=== PATIENT | male | born 1945 | race Caucasian/White ===

== ENCOUNTER 2019-02-05 05:33 | Inpatient (IN) | payer MEDICARE ==
[2019-02-05] MEDS ORDERED: CEFAZOLIN 2 Gram 2 GM/50 ML BAG IVPB ONE (06:00)
[2019-02-05] MEDS ORDERED: METOCLOPRAMIDE 10 MG TABLET PO ONE (06:00)
[2019-02-05] MEDS ORDERED: SCOPOLAMINE 1 PATCH TDSY TD ONE (06:00)
[2019-02-05] MEDS ORDERED: FAMOTIDINE 20MG TABLET PO ONE (06:00)
[2019-02-05] MEDS ORDERED: RINGERS SOLUTION,LACTATED 1,000 ML IV ONE ×2 (06:19→08:00)
[2019-02-05] MEDS ORDERED: HYDROMORPHONE HCL 2 MG/ML VIAL IV PRN (10:00)
[2019-02-05] MEDS ORDERED: ZOLPIDEM TARTRATE 5 MG TABLET PO PRN (10:00)
[2019-02-05] MEDS ORDERED: NALOXONE 0.4 MG/1 ML VIAL IVP PRN (10:00)
[2019-02-05] MEDS ORDERED: ONDANSETRON HCL IV 4 MG/2 ML VIAL IVP PRN (10:00)
[2019-02-05] MEDS ORDERED: OXYCODONE HCL/APAP 5MG/325MG TABLET PO PRN ×2 (10:00)
[2019-02-05] MEDS ORDERED: HYDROCODONE/APAP 5/325MG TABLET PO PRN (10:00)
[2019-02-05] MEDS ORDERED: METOCLOPRAMIDE HCL 10 MG/2 ML VIAL IVP PRN (10:00)
[2019-02-05] MEDS ORDERED: TRAMADOL HCL 50 MG TABLET PO PRN ×2 (10:00)
[2019-02-05] MEDS ORDERED: SENNOSIDES/DOCUSATE SODIUM UD CAPSULE PO PRN (10:00)
[2019-02-05] MEDS ORDERED: MAGNESIUM HYDROXIDE 30 ML UDC PO PRN (10:00)
[2019-02-05] MEDS ORDERED: DIPHENHYDRAMINE HCL 25 MG CAPSULE PO PRN (10:00)
[2019-02-05] MEDS ORDERED: AL HYDROX/MAG HYDROX 30ML UD PO PRN (10:00)
--- NOTE | 2019-02-05 10:31 | Operative Note ---
DATE OF SURGERY: 02/05/2019 SURGEON: Nabeel Mccoy D.O. REFERRING PHYSICIAN: Barry Alba D.O. PREOPERATIVE DIAGNOSIS: OSTEOARTHRITIS OF THE LEFT HIP. POSTOPERATIVE DIAGNOSIS: OSTEOARTHRITIS OF THE LEFT HIP. OPERATION: LEFT TOTAL HIP ARTHROPLASTY. DESCRIPTION: This 73-year-old male was taken to the Operating Room and placed in the supine position on the operating room table. Spinal anesthesia was induced and the left hip was then prepped with Hibiclens and draped in the usual sterile fashion. After the patient had been placed in the right lateral decubitus position, all bony prominences well padded and head well secured. All scrub personnel wore personal isolation suits. The lateral hip incision was made dissecting down through the skin and subcutaneous tissue. Hemostasis was obtained with the electrocautery. The tensor was divided in line with the skin incision, short rotators were divided from the posterior aspect of the femur, and a self retaining hip retractor had been placed. Steinmann pins were used as retractors, one superiorly, one posterosuperiorly, and one posteroinferiorly and excellent exposure to the acetabulum was made. We then made a mis on the greater trochanter and measured this to the proximal pin for bahai of anatomic length at the completion of the procedure. The hip was dislocated, neck amputated, and the box osteotome was used to cut the proximal femur. A Cobra retractor was placed for excellent exposure. The labrum was excised as well as small osteophytes posteroinferiorly and we began reaming with a 50 mm reamer reaming in 1 mm increments to a size 54 to the base of the cotyloid notch and a trial cup was placed. A size 54 was seen to be the appropriate size. A size 54 Trident cup was then impacted into place with 40 degrees of abduction and approximately 20 degrees of anteversion, excellent fit was noted, and a trial liner was placed. We then used the associate material handler to find the center of the femoral canal and then using an alternating ream broach technique, we reamed up to a size 8 with a [address], a calcar reamer was used. Subsequently the 8 broach was used a trial and excellent stability of the hip was noted and we had restored the hip to anatomic length with full flexion, wide abduction, external rotation, internal rotation to about 70 degrees with no instability. All trial components were then removed and the a size 36 mm X3 liner was impacted into place and a size 8 collar secure fit femoral component was impacted in place following the insertion of a 36 mm L-fit head +0 degree. The hip was then again reduced and taken through range of motion and found to be stable and the retractors were removed. The wound was copiously irrigated with pulse lavage lactated Ringer's solution, short rotators were reattached to the greater trochanter using #5 Ethibond suture through drill holes to the posterior aspect of the greater trochanter. We then placed a drain through a separate stab incision and the tensor was closed with #2 Vicryl as was the gluteus abe. The wound again was irrigated with lactated Ringer's solution, a drain had been placed deep to the tensor. Subcutaneous tissue was closed with 0 Vicryl and the skin with carmen. Sterile dressings were applied and the patient was taken to the Recovery Room in satisfactory condition. GROSS PATHOLOGY: This patient demonstrated osteoarthritis of the left hip with full thickness articular cartilage loss. Small posteroinferior osteophytes were present. Final components inserted were a [place] size 8 collared secure fit femoral component, a 54 mm Trident cup, a 36 mm X3 liner, 0 degree and a 36 + 0 L-fit head was used. JOB NUMBER: [id number] MTDD
[2019-02-05] MEDS: RINGERS SOLUTION,LACTATED 1,000 ML IV SCH ×2 (12:00→20:11)
--- NOTE | 2019-02-05 14:15 | Rehab Evaluation ---
Patient Information - Patient Information Diagnosis: L hip OA Ordered Treatment: PT Evaluate and Treat Status: Initial Evaluation Surgery: Yes (L THR) Date of Surgery: 02/05/19 Past Medical/Surgical Hx: PAST MEDICAL/SURGICAL HISTORY Surgery to Affected Area? No Recent Surgery? Past Surgical History prostate sx, r shoulder sx, appy, carley knee scopes, lf thumb sx, hernia PMH - Respiratory Hx Respiratory Disorders No Hx Bronchitis Yes: HX OF Comment: HX LUNG CA HAD RIGHT MIDDLE LOBE REMOVED 2017 PMH - Cardiovascular Hx Cardiovascular Disorders No Hx Hypertension Yes: FAIR CONTROL WITH MEDS Exercise Tolerance Good PMH - Neuro Hx Neurological Disorders No PMH - GI Hx Gastrointestinal Disorders No PMH - Hx Genitourinary Disorders Yes Hx Prostate Problems Yes: cancer with surgical removal PMH - Endocrine Hx Endocrine Disorders No PMH - Musculoskeletal Hx Musculoskeletal Disorders Yes Hx Arthritis Yes: knees PMH - Psych Hx Psychiatric Problems No PMH - Hematology/Oncology Hx Hematology/Oncology Yes Disorders Hx Cancer Yes: prostate Hx Chemotherapy Yes Premorbid Status: Detail (The patient was independent with all mobility prior to surgery.) Social History: Detail (The patient lives with spouse in one story house with a step, landing and another step at the enterance with no railings. The bathroom is equipped with a tub/shower combination and hand held shower, standard height toilet. No grab bars wher precent in the bathroom. The patient has a walker with wheels and standard cane.) Precautions: [place], Fall, Other (THR precautions, WBAT on the L LE.) - Time With Patient Total Time Spent With Patient (Min): 30 Treatment Procedures: Detail (Initial Evaluation, low complexity.) Subjective Information - Subjective Information Per Patient (The patient had minimal complaints of pain. The patient did not rate his pain using 0-10 pain scale.) Objective Data - Mental Status Patient Orientation: Oriented x3 - Visual Perception Appears within normal limits for therapeutic activities - ROM Not within normal limits (The patient's L hip is within total hip precautions. All other LE AROM is WFL.) - Strength/Tone Not within normal limits (The patient's LE strength was not tested s/p surgery however was WFL.) - Bed Mobility Independent (The patient was independent with supine to sit with use of trapeze and verbal cues. The patient was independent with sit to supine and scooting up in bed.) - Transfers Independent (The patient was independent with sit to and from stand transfer.) - Balance Balance Sitting: Good Balance Standing: Good - Sensation Intact - Gait Detail (The patient ambulated 65 feet WBAT on the L LE with supervision for safety only.) Therapy Assessment - Therapy Assessment Detail (The patient was independent with transfers and bed mobility and required supervision for safety with ambulation. Anticipate the patient will reach his inpatient PT goals in one to two sessions.) Problem List - Problem List Physical Therapy Problem List: Detail (Decreased L LE strength) Goals - Goals Physical Therapy Goals: 1) The patient will be independent with THR HEP. 2) The patient will be independent with supine to sit without use of trapeze. 3) The patient will ambulate on stairs using proper technique with supervision for safety. Prognosis - Prognosis Good Plan - Plan Physical Therapy Plan: PT 1-2 sessions for gait training on stairs, bed mobility and instruction in THR HEP.
[2019-02-05] MEDS ORDERED: PNEUM 13-VAL/PF 0.5 ML IM ONE (14:18)
[2019-02-05] MEDS ORDERED: ROPIVACAINE HCL (NAROPIN) /PF 5MG/ML 20ML VIAL IV ONE (14:52)
[2019-02-05] MEDS ORDERED: DEXAMETHASONE 4 MG/ML 1ML VIAL IVP ONE (14:52)
[2019-02-05] MEDS ORDERED: 0.9 % SODIUM CHLORIDE 10 ML VIAL IVP ONE (14:52)
[2019-02-05] MEDS ORDERED: FONDAPARINUX 2.5 MG/0.5 ML SYR SQ SCH (16:00)
[2019-02-05] MEDS: CEFAZOLIN 2 Gram 2 GM/50 ML BAG IVPB SCH ×2 (17:05→23:23)
[2019-02-05] MEDS: HYDROCODONE/APAP 5/325MG TABLET PO PRN (20:26)
[2019-02-05] MEDS ORDERED: VALSARTAN 80 MG TAB PO SCH (22:00)
[2019-02-05] MEDS: ASPIRIN 325 MG TAB ENTERIC-COATED PO SCH (22:08)
[2019-02-06] MEDS: HYDROCODONE/APAP 5/325MG TABLET PO PRN ×3 (05:46→14:54)
[2019-02-06] MEDS: CEFAZOLIN 2 Gram 2 GM/50 ML BAG IVPB SCH (06:46)
[2019-02-06] MEDS ORDERED: PANTOPRAZOLE SODIUM 40 MG TABLET PO SCH (07:00)
[2019-02-06] MEDS: ASPIRIN 325 MG TAB ENTERIC-COATED PO SCH (10:17)
--- NOTE | 2019-02-06 10:57 | Physical Therapy Tx Note ---
Physical Therapy Tx Note - Treatment Note Tolerated: Good Total Time Spent With Patient: 35 Physical Therapy Tx Note: Detail (Patient was reclined in bed upon RADIOTELEGRAPH OPERATOR SERVICER arrival. Patient transferred supine to sit with min assist x1 to support left LE. Patient transferred sit to and from stand CGA x1. Patient ambulated 64 feet with wheeled walker CGA x1. Patient ascended 3 steps, descended 2 steps with using hand railing and walker. Patient transferred sit to and from stand CGA x1. Patient ambulated 13 feet with wheeled walker CGA x1. Patient transferred sit to supine min assist x1 to support left LE. Patient scooted up in bed independently. Patient performed the following exercises x10 reps each: quad sets, glut squeezes, heel slides, ankle pumps, hip abduction, and hamstring sets. Patient tolerated treatment well. Patient reports he has a strap at home to help lift LE onto bed. Patient was left reclined in bed with call light within reach. Patient displays good understanding of ambulation, stair climbing, and HEP. Patient discharged from inpatient PT at this time as all goals are met.) Physical Therapy Problem List: Detail (Decreased L LE strength) Physical Therapy Goals: 1) The patient will be independent with THR HEP. Met. 2) The patient will be independent with supine to sit without use of trapeze. Met. 3) The patient will ambulate on stairs using proper technique with supervision for safety. Met. Prognosis: Good Physical Therapy Plan: Patient discharged from inpatient PT at this time as all goals are met.
--- NOTE | 2019-02-06 11:32 | Rehab Evaluation ---
Patient Information - Patient Information Diagnosis: L hip OA Ordered Treatment: OT Evaluate and Treat Status: Initial Evaluation Surgery: Yes (L THR) Date of Surgery: 02/05/19 Past Medical/Surgical Hx: PAST MEDICAL/SURGICAL HISTORY Surgery to Affected Area? No Recent Surgery? Past Surgical History prostate sx, r shoulder sx, appy, davi knee scopes, lf thumb sx, hernia PMH - Respiratory Hx Respiratory Disorders No Hx Bronchitis Yes: HX OF Comment: HX LUNG CA HAD RIGHT MIDDLE LOBE REMOVED 2017 PMH - Cardiovascular Hx Cardiovascular Disorders No Hx Hypertension Yes: FAIR CONTROL WITH MEDS Exercise Tolerance Good PMH - Neuro Hx Neurological Disorders No PMH - GI Hx Gastrointestinal Disorders No PMH - Hx Genitourinary Disorders Yes Hx Prostate Problems Yes: cancer with surgical removal PMH - Endocrine Hx Endocrine Disorders No PMH - Musculoskeletal Hx Musculoskeletal Disorders Yes Hx Arthritis Yes: knees PMH - Psych Hx Psychiatric Problems No PMH - Hematology/Oncology Hx Hematology/Oncology Yes Disorders Hx Cancer Yes: prostate Hx Chemotherapy Yes Premorbid Status: Detail (The patient was independent with all mobility prior to surgery. His spouse is responsible for home mgmt, meal prep and laundry tasks and he is responsible for yard work.) Social History: Detail (The patient lives with spouse in one story house with a step, landing and another step at the entrance with no railings. The bathroom is equipped with a tub/shower combination and hand held shower and a standard height toilet. No grab bars are present in the bathroom. The patient has a 2 wheeled walker, standard cane and a shoe horn.) Precautions: [place], Fall, Other (THR precautions, WBAT on the L LE.) - Time With Patient Total Time Spent With Patient (Min): 55 Treatment Procedures: Detail (OT eval low complexity) Subjective Information - Subjective Information Per Patient Objective Data - Pain Pain Present: Yes (07/18) - Mental Status Patient Orientation: Oriented x3 - Visual Perception Appears within normal limits for therapeutic activities - ROM Within normal limits (Davi UE AROM WNL) - Strength/Tone Within normal limits (Davi UE strength WNL) - Coordination Appears within normal limits for therapeutic activities - Bed Mobility Independent (Ind with supine to sit and sit to supine) - Transfers Independent - Balance Balance Sitting: Good Balance Standing: Fair - Sensation Intact - Gait Detail (Pt ambulating to bathroom with 2 wheeled walker and CG assist.) - ADL's/IADL's Detail (Pt educated and able to demonstrate learning of modified LE dressing techniques using adaptive equipment while maintaining total hip precautions including doffing slipper socks and briefs and donning underwear, sweatpants and slip on shoes. Reviewed adaptive equipment and opted to purchase regional director of finance, sock aid, long shoe horn and long bath sponge. Reviewed shower safety, pt verbalized understanding.) Therapy Assessment - Therapy Assessment Detail (Pt is Ind with modified LE dressing techniques using adaptive equipment while maintaining total hip precautions.) Problem List - Problem List Physical Therapy Problem List: Detail (Decreased L LE strength) Occupational Therapy Problem List: Detail (No current IP OT problems identified.) Goals - Goals Physical Therapy Goals: 1) The patient will be independent with THR HEP. Met. 2) The patient will be independent with supine to sit without use of trapeze. Met. 3) The patient will ambulate on stairs using proper technique with supervision for safety. Met. Occupational Therapy Goals: No current IP OT goals identified. Prognosis - Prognosis Good Plan - Plan Physical Therapy Plan: Patient discharged from inpatient PT at this time as all goals are met. Occupational Therapy Plan: No additional IP OT recommended at this time. Thank you for this referral.
[2019-02-06] MEDS ORDERED: PROPOFOL 10 MG/ML VIAL IV ONE (12:28)
[2019-02-06] MEDS ORDERED: MIDAZOLAM HCL 2MG/2ML VIAL IV ONE (12:28)
[2019-02-06] MEDS ORDERED: LIDOCAINE 2% MDV (20MG/ML) 20ML VIAL IV ONE (12:28)
--- NOTE | 2019-02-08 13:10 | Discharge Summary ---
DATE OF ADMISSION: 02/05/2019 DATE OF DISCHARGE: 02/06/2019 ADMITTING DIAGNOSIS: Osteoarthritis of the left hip. DISCHARGE DIAGNOSIS: Osteoarthritis of the left hip. OPERATIVE PROCEDURE: Left total hip arthroplasty. DESCRIPTION: This 73-year-old male was admitted to the hospital for total hip arthroplasty and tolerated the operative procedure well. He ambulated well and cleared physical therapy and was ready for discharge. pain medication was controlling his discomfort. He will be discharged with instructions to wear his MARLON hose during the day and remove them at night. He will have outpatient physical therapy. He was given a prescription for tramadol 50 mg 1 q.6 h. as necessary for pain. He was given 60. He is also given a prescription for [place] 5/325, #40, 1 every 4 hours as necessary for pain. He will take aspirin 325 mg daily for 4 weeks. Routine wound care instructions were given. He will follow up in the clinic in 2 weeks. Should he have any problems prior to being seen, he was instructed to call me. MOHAN
== END 2019-02-06 16:33 | disposition home or self-care (01) | DRG 470 ==
LOC: SUR 05:33 → MEDSURG 05:34
PROVIDERS: ADMIT Orthopaedic Surgery; ATTEND Orthopaedic Surgery
PROC: 0SRB06A Replacement of Left Hip Joint with Oxidized Zirconium on Polyethylene Synthetic Substitute, Uncemented, Open Approach (ICD-10-PCS; principal; 2019-02-05 08:00)
DX: M16.12 Unilateral primary osteoarthritis, left hip (principal); I10 Essential (primary) hypertension; K21.9 Gastro-esophageal reflux disease without esophagitis
CPT/HCPCS: 36416; 76942; 82948; 90670; C1776; J7120